=== PATIENT | male | born 1980 | race Caucasian/White ===

== ENCOUNTER 2024-05-08 04:02 | Day surgery (SDC) | payer OTHER ==
[~2024-05-08] VITALS: Ht 175.3 cm; Wt 115.0 kg
[2024-05-08] VITALS (200 sets, daily range): BP systolic 79–215; BP diastolic 39–165
[2024-05-08] MEDS ORDERED: DEXMEDETOMIDINE HCL IN SODIUM 100 ML IV SCH ×2 (07:15→08:00)
[2024-05-08] MEDS ORDERED: diazePAM 5 MG/TAB PO PRN ×2 (07:30→08:30)
[2024-05-08] MEDS ORDERED: PANTOPRAZOLE SODIUM Sesquihydr 40 MG/TAB PO PRN (07:30)
[2024-05-08] MEDS ORDERED: SODIUM CHLORIDE 0.9% 1,000 ML IV PRN ×3 (07:30→19:00)
[2024-05-08] MEDS ORDERED: ALBUTEROL SULFATE 2.5 MG VIAL IN PRN (07:30)
[2024-05-08] MEDS ORDERED: SCOPOLAMINE 1.5 MG DIS TD PRN (07:30)
[2024-05-08] MEDS ORDERED: CYANOCOBALAMIN 500 MCG/TAB ( B12) PO PRN (07:30)
[2024-05-08] MEDS ORDERED: FAMOTIDINE 20 MG/TAB PO PRN (07:30)
[2024-05-08] MEDS ORDERED: cloNIDine HCL 0.1 MG/TAB PO PRN (07:30)
[2024-05-08] MEDS ORDERED: LACTATED RINGER'S 1,000 ML IV PRN ×2 (07:30→08:55)
[2024-05-08] MEDS ORDERED: ASCORBIC ACID 4,000 MG in SODIUM CHLORIDE 0.9% 1,000 ML IV SCH (08:00)
[2024-05-08 08:17] LABS: BASO% 0.4 % (0-3); EOS% 1.4 % (0-8); HEMATOCRIT 56.2 % (39.0-50.0); HEMOGLOBIN 17.9 g/dl (14.0-18.0); IMMATURE GRANULOCYTES 0.1 % (0.0-5.0); MEAN CELL VOLUME 88.9 fL CALC (80.0-100.0); MEAN CORPUSCULAR HGB 28.3 pG CALC (26.0-32.0); MEAN CORPUSCULAR HGB CONC 31.9 g/dL CAL (32.0-36.0); MONO% 5.9 % (2-13); NEUT# 10.2 thou/uL (1.82-7.42); NEUT% 75.2 % (42-76); RED BLOOD COUNT 6.32 mill/uL (4.70-6.10); RED CELL DISTRI WIDTH 14.6 % (11.5-15.5)
[2024-05-08] MEDS ORDERED: cloNIDine HCL 0.1 MG/TAB PO SCH ×2 (08:30→23:00)
[2024-05-08] MEDS ORDERED: LABETALOL HCL 20 MG/ 4 ML CARTRG IV SCH (08:30)
[2024-05-08 08:38] LABS: ALBUMIN 4.4 g/dL (3.2-5.0); BILIRUBIN, TOTAL 1.3 mg/dL (0.2-1.3); CREATININE 0.7 mg/dL (0.7-1.3); POTASSIUM 4.6 mmol/l (3.5-5.1); TOTAL PROTEIN 7.3 g/dL (6.3-8.2)
[2024-05-08] MEDS ORDERED: diazePAM 5 MG/TAB VT PRN (08:55)
[2024-05-08] MEDS ORDERED: MIDAZOLAM HCL 2 MG/2 ML VIAL IV PRN ×3 (08:55→14:00)
[2024-05-08] MEDS ORDERED: THIAMINE HCL 100 MG/ML 2ML VIAL IV PRN (08:55)
[2024-05-08] MEDS ORDERED: ROCURONIUM BROMIDE 10 MG/ML 5 ML VIAL IV PRN (08:55)
[2024-05-08] MEDS ORDERED: ONDANSETRON HCl 4 MG/2 ML SDV IV PRN ×3 (08:55→19:00)
[2024-05-08] MEDS ORDERED: PROPOFOL 10 MG/ML 100ML VIAL IV PRN (08:55)
[2024-05-08] MEDS ORDERED: NALTREXONE HCL 50 MG/TAB VT PRN (08:55)
[2024-05-08] MEDS ORDERED: PROPOFOL 100 ML IV PRN (08:55)
[2024-05-08] MEDS ORDERED: MAGNESIUM SULFATE HEPTAHYDRATE 100 ML IV PRN (08:55)
[2024-05-08] MEDS ORDERED: LIDOCAINE HCL 1% (10MG/ML) 100 MG/10 ML MDV IV PRN (08:55)
[2024-05-08] MEDS ORDERED: STERILE WATER FOR IRRIGATION 1,000 ML BTL IR PRN (08:55)
[2024-05-08] MEDS ORDERED: cloNIDine HYDROCHLORIDE 100 MCG/ML 10 ML INJ IV PRN (08:55)
[2024-05-08] MEDS ORDERED: SUCCINYLCHOLINE CHLORIDE 20 MG/ML 10ML VIAL IV PRN (08:55)
[2024-05-08] MEDS ORDERED: DiphenhydrAMINE HCL 50 MG/ML SDV IV PRN (08:55)
[2024-05-08] MEDS ORDERED: cloNIDine HCL 0.1 MG/TAB VT PRN (08:55)
[2024-05-08] MEDS ORDERED: LIDOCAINE HCL 1% (10MG/ML) 100 MG/10 ML MDV VT PRN ×2 (08:55)
[2024-05-08] MEDS ORDERED: OCTREOTIDE ACETATE 100 MCG/VIAL SDV SC PRN (08:55)
[2024-05-08] MEDS ORDERED: NALTREXONE50 MG PO (14:26)
[2024-05-08] MEDS ORDERED: KLONOPIN2 MG PO (14:26)
[2024-05-08] MEDS ORDERED: CLONIDINE0.1 MG PO (14:26)
[2024-05-08] MEDS ORDERED: HALOPERIDOL LACTATE 5 MG/ML SDV IV PRN ×2 (19:00→20:20)
[2024-05-08] MEDS ORDERED: PROMETHAZINE HCL 25 MG in SODIUM CHLORIDE 0.9% 50 ML IV PRN (19:00)
[2024-05-08] MEDS ORDERED: PROMETHAZINE HCL 12.5 MG in SODIUM CHLORIDE 0.9% 50 ML IV PRN (19:00)
[2024-05-08] MEDS ORDERED: KETOROLAC TROMETHAMINE 30 MG/ML SDV IV PRN (19:00)
[2024-05-08] MEDS ORDERED: ACETAMINOPHEN 1,000 MG/100 ML VIAL IV PRN (19:00)
[2024-05-08] MEDS ORDERED: ACETAMINOPHEN 500 MG TAB PO PRN (19:00)
[2024-05-08] MEDS ORDERED: PATIENT' OWN MED CONTROLLED 1 EA DOSE IV PRN (21:00)
[2024-05-08] MEDS ORDERED: clonazePAM 1 MG/TAB PO PRN (23:00)
[2024-05-09 02:38] VITALS: BP 119/72
[2024-05-09] MEDS ORDERED: NALTREXONE HCL 50 MG/TAB PO SCH (04:00)
[2024-05-09] MEDS ORDERED: clonazePAM 1 MG/TAB PO PRN ×2 (04:00→08:00)
[2024-05-09] MEDS ORDERED: cloNIDine HCL 0.1 MG/TAB PO PRN (04:00)
[2024-05-09 05:25] LABS: BASO% 0.1 % (0-3); HEMATOCRIT 50.4 % (39.0-50.0); HEMOGLOBIN 16.6 g/dl (14.0-18.0); IMMATURE GRANULOCYTES 0.3 % (0.0-5.0); LYMPH% 11.3 % (15-41); MEAN CELL VOLUME 88.1 fL CALC (80.0-100.0); MEAN CORPUSCULAR HGB CONC 32.9 g/dL CAL (32.0-36.0); MONO% 2.9 % (2-13); NEUT# 11.33 thou/uL (1.82-7.42); NEUT% 85.4 % (42-76); RED BLOOD COUNT 5.72 mill/uL (4.70-6.10); RED CELL DISTRI WIDTH 14.3 % (11.5-15.5)
[2024-05-09 05:47] LABS: ALBUMIN 4.1 g/dL (3.2-5.0); BILIRUBIN, TOTAL 1.3 mg/dL (0.2-1.3); CREATININE 0.6 mg/dL (0.7-1.3); POTASSIUM 4.3 mmol/l (3.5-5.1); TOTAL PROTEIN 6.7 g/dL (6.3-8.2)
[2024-05-09] MEDS ORDERED: PANTOPRAZOLE SODIUM Sesquihydr 40 MG/TAB PO SCH (08:00)
[2024-05-09] MEDS ORDERED: cloNIDine HCL 0.1 MG/TAB PO SCH (08:00)
[2024-05-09] MEDS ORDERED: ACETAMINOPHEN 325 MG/TAB PO SCH (08:00)
[2024-05-09 08:12] VITALS: BP 113/55
[2024-05-09] MEDS ORDERED: MAGNESIUM OXIDE 400 MG/TAB PO PRN (09:00)
[2024-05-09] MEDS ORDERED: Cholecalciferol 2,000 UNIT/TAB PO PRN (09:00)
[2024-05-09] MEDS ORDERED: ACETAMINOPHEN 500 MG TAB PO PRN (09:00)
== END 2024-05-09 17:18 | disposition home or self-care (01) | DRG 897 ==
LOC: ANR 04:02 → MS2 04:26 → ANR 07:00 → MS2 16:10 → ANR 05-09 17:18
PROVIDERS: ATTEND Anesthesiology
DX: F11.20 Opioid dependence, uncomplicated (principal)
CPT/HCPCS: J1100; J1200; J1630; J2354; J2405; J2704; J3411; J3475; J3490